=== PATIENT | female | born 1950 | race Hispanic/Latino ===

== ENCOUNTER 2017-12-26 21:48 | Observation (INO) | payer OTHER ==
[~2017-12-26] VITALS: Ht 167.6 cm; Wt 75.6 kg
[~2017-12-26 21:48] MED LIST: CIPR-278 PO; LISI5TAB PO; METF500T PO
[2017-12-26 22:33] LABS: BASOPHILS % (AUTO) 0.6 % (0.0-5.0); EOSINOPHILS % (AUTO) 2.9 % (0.0-8.0); HEMATOCRIT 28.1 % (36-48); LYMPHOCYTES % (AUTO) 19.3 % (21.0-51.0); MEAN CORPUSCULAR HEMOGLOBIN 29.5 pg (27.0-33.0); MEAN CORPUSCULAR HGB CONC 34.7 g/dL (32.0-36.0); MEAN CORPUSCULAR VOLUME 85.2 fL (79-99); MONOCYTES % (AUTO) 9.7 % (3.0-13.0); NEUTROPHILS % (AUTO) 67.5 % (40.0-77.0); PLATELET COUNT (AUTO) 381 K/uL (130-400); RED BLOOD CELL COUNT(AUTO) 3.29 MIL/uL (4.00-5.50); RED CELL DISTRIBUTION WIDTH 13.1 % (11.0-15.5); WHITE BLOOD COUNT (AUTO) 11.5 K/uL (4.8-10.8)
[2017-12-26 22:43] LABS: CREATININE 1.6 mg/dL (0.5-1.5); POTASSIUM 5.4 mmol/L (3.5-5.1)
[2017-12-26 22:48] LABS: BILIRUBIN,TOTAL 0.4 mg/dL (0.2-1.0); TOTAL PROTEIN, SERUM 8.5 g/dL (6.0-8.3)
[2017-12-26] MEDS ORDERED: SODIUM CHLORIDE 0.9% 1000ML 1,000 ML IV ONE (23:27)
[2017-12-26] MEDS ORDERED: SODIUM POLYSTYRENE SULFONATE 15 GM/60 ML ML ONE (23:27)
[2017-12-27 00:06] LABS: APPEARANCE,URINE Clear (CLEAR); BILIRUBIN,URINE Negative (NEGATIVE); COLOR,URINE Yellow (YELLOW); GLUCOSE, URINE (UA) Negative (NEGATIVE); KETONES,URINE Negative (NEGATIVE); LEUKOCYTE ESTERASE ,URINE Moderate (NEGATIVE); NITRATE,URINE Negative (NEGATIVE); OCCULT BLOOD,URINE Negative (NEGATIVE); PROTEIN,URINE POS 1+ (NEGATIVE); UROBILINOGEN,URINE 0.2 mg/dL (0.2-1.0)
[2017-12-27 00:32] LABS: BACTERIA,URINE Moderate /HPF (None Seen); RBC,URINE None Seen /HPF (0-1); SQUAMOUS EPITHELIAL CELL,UR Rare /LPF (0-2)
[2017-12-27] MEDS: SODIUM CHLORIDE 0.9% 1000ML 1,000 ML IV SCH ×2 (01:08→11:08)
[2017-12-27] MEDS ORDERED: ONDANSETRON HCL 4 MG/2 ML VIAL IV PRN (01:15)
[2017-12-27] MEDS ORDERED: ACETAMINOPHEN 325 MG TAB PO PRN ×2 (01:15)
[2017-12-27] MEDS ORDERED: GUAIFENESIN-DM 200/20 MG 10 ML PO PRN (01:15)
[2017-12-27] MEDS ORDERED: AZITHROMYCIN 500MG+NS 250ML 250 ML IV SCH (01:15)
[2017-12-27] MEDS ORDERED: HYDRALAZINE HCL 20 MG/ML VIAL IV PRN (01:15)
[2017-12-27] MEDS: LEVOFLOXACIN 250 MG/D5W 50ML 50 ML IV SCH (03:00)
[2017-12-27] MEDS ORDERED: LEVOFLOXACIN 500 MG/D5W 100 ML 100 ML ONE (03:01)
[2017-12-27] MEDS ORDERED: SODIUM CHLORIDE 0.9% 1000ML 1,000 ML IV ONE (04:59)
[2017-12-27 05:45] LABS: HEMATOCRIT 24.7 % (36-48); MEAN CORPUSCULAR HEMOGLOBIN 29.1 pg (27.0-33.0); MEAN CORPUSCULAR HGB CONC 33.9 g/dL (32.0-36.0); MEAN CORPUSCULAR VOLUME 85.6 fL (79-99); PLATELET COUNT (AUTO) 342 K/uL (130-400); RED BLOOD CELL COUNT(AUTO) 2.88 MIL/uL (4.00-5.50); RED CELL DISTRIBUTION WIDTH 13.2 % (11.0-15.5)
[2017-12-27 05:57] LABS: HEMOGLOBIN A1C 7.2 % (4.0-6.0)
[2017-12-27 06:07] LABS: CREATININE 1.7 mg/dL (0.5-1.5); POTASSIUM 5.4 mmol/L (3.5-5.1); THYROID STIMULATING HORMONE 6.27 uIU/mL (0.36-3.74)
[2017-12-27] MEDS ORDERED: SODIUM POLYSTYRENE SULFONATE 15 GM/60 ML ML ONE (06:31)
[2017-12-27] MEDS ORDERED: IPRATROPIUM/ALBUTEROL SULFATE 3 ML SOLUTION IH ONE ×2 (06:40→11:58)
[2017-12-27] MEDS: IPRATROPIUM/ALBUTEROL SULFATE 3 ML SOLUTION IH SCH ×4 (07:27→23:59)
[2017-12-27] MEDS: INSULIN HUMULIN R 100 UNIT/ML 3ML SQ SCH ×4 (07:30→21:38)
[2017-12-27] MEDS ORDERED: BENZONATATE 100 MG CAPSULE PO ONE (08:04)
[2017-12-27] MEDS ORDERED: FAMOTIDINE 20MG TAB 20 MG TAB ONE (08:05)
[2017-12-27] MEDS: FAMOTIDINE 20MG TAB 20 MG TAB PO SCH ×2 (09:00→21:30)
[2017-12-27] MEDS: BENZONATATE 100 MG CAPSULE PO SCH ×3 (09:00→21:30)
[2017-12-27] MEDS: CLINDAMYCIN 300 MG/D5W 50 ML 50 ML IV SCH ×3 (10:45→21:34)
[2017-12-27] MEDS: GLIMEPIRIDE 2 MG TABLET PO SCH (10:45)
[2017-12-27 12:01] LABS: RETICULOCYTE % (AUTO) 1.48 % (0.42-2.23)
[2017-12-27 12:30] LABS: % IRON SATURATION 13.3 % (22-44)
[2017-12-27 13:38] VITALS: BP 146/68
[2017-12-27] MEDS ORDERED: CLIN300C9 PO (13:56)
[2017-12-27] MEDS ORDERED: LISI-613 PO (13:56)
[2017-12-27] MEDS ORDERED: GLIM2TAB3 PO (13:56)
[2017-12-27] MEDS ORDERED: METF10004 PO (13:56)
[2017-12-27 16:00] VITALS: BP 118/56
[2017-12-27 19:20] VITALS: BP 131/62
[2017-12-27 23:10] VITALS: BP 132/64
[2017-12-28 03:10] VITALS: BP 150/71
[2017-12-28] MEDS: CLINDAMYCIN 300 MG/D5W 50 ML 50 ML IV SCH ×2 (04:10→10:45)
[2017-12-28 04:25] LABS: HEMATOCRIT 22.3 % (36-48); MEAN CORPUSCULAR VOLUME 85.7 fL (79-99); PLATELET COUNT (AUTO) 303 K/uL (130-400); RED BLOOD CELL COUNT(AUTO) 2.61 MIL/uL (4.00-5.50); RED CELL DISTRIBUTION WIDTH 13.4 % (11.0-15.5)
[2017-12-28 04:46] LABS: CREATININE 1.5 mg/dL (0.5-1.5)
[2017-12-28] MEDS: INSULIN HUMULIN R 100 UNIT/ML 3ML SQ SCH ×2 (06:18→15:52)
[2017-12-28] MEDS: IPRATROPIUM/ALBUTEROL SULFATE 3 ML SOLUTION IH SCH ×2 (07:02→11:08)
[2017-12-28] MEDS ORDERED: AMLO5TAB4 PO (07:40)
[2017-12-28] MEDS ORDERED: COMPOUND IV MISC 1 EACH IVSOLN MISC PRN (07:45)
[2017-12-28 08:00] VITALS: BP 149/71
[2017-12-28] MEDS: FAMOTIDINE 20MG TAB 20 MG TAB PO SCH (08:35)
[2017-12-28] MEDS: BENZONATATE 100 MG CAPSULE PO SCH ×2 (08:35→14:00)
[2017-12-28] MEDS: GLIMEPIRIDE 2 MG TABLET PO SCH (08:36)
[2017-12-28] MEDS: LEVOFLOXACIN 250 MG/D5W 50ML 50 ML IV SCH (08:36)
[2017-12-28] MEDS ORDERED: IRON SUCROSE COMPLEX 100 MG in SODIUM CHLORIDE 0.9% 50 ML IV SCH (09:00)
[2017-12-28] MEDS ORDERED: AMLODIPINE BESYLATE 5 MG TAB PO SCH (09:00)
[2017-12-28 11:09] LABS: HEMATOCRIT 21.5 % (36-48)
[2017-12-28 12:00] VITALS: BP 139/76
== END 2017-12-28 15:53 | disposition home or self-care (01) ==
LOC: EDH 21:48 → EDHIP 12-27 00:05 → 3AH 12-27 12:20
PROVIDERS: ADMIT Internal Medicine; ATTEND Internal Medicine
DX: E87.5 Hyperkalemia (principal); I10 Essential (primary) hypertension; E11.9 Type 2 diabetes mellitus without complications; Z89.511 Acquired absence of right leg below knee; N28.9 Disorder of kidney and ureter, unspecified
CPT/HCPCS: 36415 ×3; 71045; 76770; 80048 ×2; 80053; 81001; 82607; 82728; 82746; 82948 ×5; 83036; 84132; 84443; 85025; 85027 ×2; 87088; 87186; 87804 ×2; 93005; 94640 ×6; 94664; 96365; 96372 ×2; 96375 ×2; 96376; 99291; G0378 ×40; J1756; J1815 ×2; J1956 ×2; J3490 ×3; J7030 ×3